=== PATIENT | male | born 1935 | race Caucasian/White ===

== ENCOUNTER → 2018-02-11 09:46 | Outpatient (CLI) | payer MEDICARE, OTHER ==
[2013-05-01 14:10] VITALS: BMI 31.5
[~2018-02-11 09:46] MED LIST: BACTRIM DS TABL1 TAB PO; BAYER CHEWABLE81 MG PO; CHLORTHALIDONE25 MG PO; FOLATE0.4 MG PO; KLOR-CON20 MEQ/PKT PO; MAGNESIUM OXID500 MG PO; NORVASC5 MG PO; RIFADIN300 MG PO; TOPROL XL50 MG PO; ZYLOPRIM300 MG PO
== END | disposition home or self-care (01) ==
LOC: D.CT 09:46
DX: R51 Headache (principal)

== ENCOUNTER → 2019-01-06 10:21 | Outpatient (CLI) | payer MEDICARE, OTHER ==
[2013-05-01 14:10] VITALS: BMI 31.5
== END | disposition home or self-care (01) ==
LOC: D.CT 10:21
PROVIDERS: ATTEND Family Medicine
DX: I70.213 Atherosclerosis of native arteries of extremities with intermittent claudication, bilateral legs (principal)

== ENCOUNTER → 2019-04-22 09:14 | Outpatient (CLI) | payer MEDICARE, OTHER ==
[2013-05-01 14:10] VITALS: BMI 31.5
--- NOTE | ~2019-04-22 | EC ---
PATIENT:MARGIE ISAAC DATE OF SERVICE: 04/22/19 SEX: M MEDICAL RECORD: [id number] DATE OF : 31 LOCATION:[facility] AGE OF PATIENT: 83 ADMISSION DATE: 04/22/19 REFERRING PHYSICIAN: INTERPRETING PHYSICIAN: FRANCISCO SHIRLEY MD ECHOCARDIOGRAM REPORT ECHO CHARGES 4 ECHO COMPLETE Date: 04/22/19 CLINICAL DIAGNOSIS: HTN/CAD/MITRAL REGURG ECHOCARDIOGRAPHIC MEASUREMENTS (adult normal given) AC root (d.<3.7cm) 4.0 cm LV Septum d (<1.2 cm> 1.3 cm Valve Excursion 1.6 cm LV Septum (systole) 1.6 cm Left Atria (s.<4.0cm> 4.0 cm LVPW d(<1.2cm) 1.5 cm RV (d.<2.3cm) 3.4 cm LVPW (sytole) 1.7 cm LV diastole(<5.6CM) 48 cm MV E-F(>70mm/sec) cm LV systole 3.5 cm LVOT Diameter 2.1 cm MV exc.(>10mm) 1.3 cm Est.ejection fraction (50-75%) % DOPPLER: LVIT cm/sec A 123.0cm/sec E 97.0 cm/sec LA cm/sec RVSP 17 mmHg LVOT 102 cm/sec AOP1/2T m/s Asc. Ao 129 cm/sec RVOT 82 cm/sec RA cm/sec PA 116 cm/sec AV Gradient Peak 6.61 mmHg AV Mean 3.53 mmHg AV Area 2.7 cm MV Gradient Peak 5.07 mmHg MV Mean 2.24 mmHg MV Area cm COMMENTS: Blueprint Trimmer: 2 LILIAN ROBERT Marketing Operations Coordinator: 3 Dr. Hall TAPE# PACS Pericardial Effusion N DATE OF SERVICE: Adequate 2D, color flow imaging, spectral Doppler, and M-Mode. LVH is present. LV internal dimensions normal. LV appears to be mildly globally hypo with mild reduced EF, estimated EF 45% to 50%. Aortic valve is sclerosed without stenosis by Doppler interrogation. Left atrium appears upper limits of normal at 4.8. Mitral valve shows no prolapse. Trace MR. Right-sided chamber is grossly normal. Trace TR. ECHOCARDIOGRAM REPORT [id number] MARGIE ISAAC TRANSINT:[id number] Voice Confirmation ID: [id number] DOCUMENT ID: [id number] FRANCISCO SHIRLEY MD CC: [id number] DICTATION DATE: 04/22/19 1600 PORTFOLIO ADMINISTRATOR: 04/22/19 2358 [address] [place] [id number] [place] [id number]
== END | disposition home or self-care (01) ==
LOC: D.HCCECHO 09:14
PROVIDERS: ATTEND Internal Medicine Interventional Cardiology
DX: I10 Essential (primary) hypertension (principal)